=== PATIENT | male | born 1960 | race Caucasian/White ===

== ENCOUNTER 2018-06-27 05:39 | Inpatient (IN) ==
[2018-06-21 11:28] LABS: AGAP 12; ALB/GLOB RATIO 1.4; ALBUMIN 4.4 g/dL (3.5-5.0); ALKALINE PHOSPHATASE 70 U/L (32-122); BUN 9 mg/dL (8-22); CALCIUM 9.5 mg/dL (8.8-10.2); CHLORIDE 105 mmol/L (98-107); COSMO 282; CREATININE 0.8 mg/dL (0.7-1.2); ESTIMATED GFR > 60; GLUCOSE 96 mg/dL (70-104); GOT 22 U/L (10-34); GPT 25 U/L (10-44); LDH 176 U/L (135-225); POTASSIUM 4.2 mmol/L (3.5-5.1); SODIUM 142 mmol/L (136-145); TCO2 25 mmol/L (25-35); TOTAL BILIRUBIN 0.48 mg/dL (0.20-1.00); TOTAL PROTEIN 7.5 g/dL (6.3-8.3)
[2018-06-21 12:34] LABS: BASO# 0.03 X1000 (0.0-0.2); BASO% 0.5 % (0.0-0.8); EOS# 0.05 X1000 (0.0-0.7); EOS% 0.8 % (0.0-10.0); HEMATOCRIT 46.1 % (42.0-52.0); HEMOGLOBIN 15.5 g/dL (14.0-18.0); LYMPH# 1.02 X1000 (1.2-3.4); LYMPH% 16.7 % (20.5-51.1); MCHC 33.6 g/dL (33-37); MCV 86.2 FL (81-99); MONO# 0.58 X1000 (0.11-0.59); MONO% 9.5 % (1.7-9.3); MPV 8.8 FL (7.4-10.4); NEUT# 4.43 X1000 (1.4-6.5); NEUT% 72.5 % (42.2-75.2); PLT 306 X1000 (130-400); RBC 5.35 XMIL (4.7-6.1); WBC 6.11 X1000 (4.8-10.8)
[2018-06-27] MEDS ORDERED: KEFZOL 1 GM/D5W 2 GM/100 ML IVPB ONE ×3 (05:40→06:02)
[2018-06-27] MEDS ORDERED: VALIUM ONE ×2 (05:40)
[2018-06-27] MEDS ORDERED: LR 1,000 ML ONE ×3 (05:40→06:23)
[2018-06-27] MEDS ORDERED: PEPCID ONE ×3 (05:40→06:00)
[2018-06-27] MEDS ORDERED: LR 0 ML ONE (06:02)
[2018-06-27] MEDS ORDERED: MARCAINE 0.25% PF/EPI 1:200,000 ONE (06:23)
[2018-06-27] MEDS ORDERED: NORCURON ONE (06:35)
[2018-06-27] MEDS ORDERED: QUELICIN (DOSE) ONE (06:35)
[2018-06-27] MEDS ORDERED: XYLOCAINE-MPF 2% ONE (06:35)
[2018-06-27] MEDS ORDERED: DIPRIVAN 1% ONE (06:35)
[2018-06-27] MEDS ORDERED: SODIUM CHLORIDE 0.9% 10 ML ONE ×2 (06:35→07:02)
[2018-06-27] MEDS ORDERED: MARCAINE 0.25% ONE (07:01)
[2018-06-27] MEDS ORDERED: EXPAREL 1.3% ONE (07:02)
[2018-06-27] MEDS ORDERED: FENTANYL ONE (07:11)
[2018-06-27] MEDS ORDERED: ZOFRAN ONE (07:24)
[2018-06-27] MEDS ORDERED: DECADRON ONE (07:24)
[2018-06-27] MEDS ORDERED: TORADOL ONE (07:24)
[2018-06-27 07:37] LABS: URINE SOURCE CATH
[2018-06-27] MEDS ORDERED: ROBINUL ONE ×4 (07:41→08:59)
[2018-06-27] MEDS ORDERED: ATROPINE ONE (07:43)
[2018-06-27] MEDS ORDERED: EPHEDRINE ONE (07:47)
[2018-06-27 07:49] LABS: BILIRUBIN URINE NEGATIVE (NEGATIVE); BLOOD URINE NEGATIVE (NEGATIVE); COLOR YELLOW; GLUCOSE URINE NEGATIVE (NEGATIVE); KETONE URINE NEGATIVE (NEGATIVE); LEUKOCYTES URINE NEGATIVE (NEGATIVE); NITRITE URINE NEGATIVE (NEGATIVE); PH URINE 5.5; PROTEIN URINE NEGATIVE (NEGATIVE); SP GRAVITY URINE 1.006; TURBIDITY URINE CLEAR (CLEAR); UROBILINOGEN URINE NORMAL (NORMAL)
[2018-06-27 07:50] LABS: UR EPITHELIAL CELLS <10 /HPF (<10); URINE BACTERIA NEGATIVE /HPF; URINE RBC <10 /HPF (<10); URINE WBC <10 /HPF (<10)
[2018-06-27] MEDS ORDERED: FLAGYL 500 MG/NS 500 MG/100 ML IVPB IV ONE (08:00)
[2018-06-27] MEDS ORDERED: NEOSTIGMINE ONE (08:59)
[2018-06-27] MEDS: DILAUDID ONE ×2 (09:49→09:52)
[2018-06-27] MEDS ORDERED: ZOFRAN IV PRN (10:55)
[2018-06-27] MEDS: OFIRMEV 1000 MG/ISOTONIC SOLN 1,000 MG/100 ML BOTTLE IV SCH ×2 (11:21→17:49)
[2018-06-27] MEDS: ULTRAM PO PRN (14:05)
[2018-06-27] MEDS: LR 1,000 ML IV SCH ×2 (14:07→20:00)
--- NOTE | 2018-06-27 18:57 | HEMO/ONC CONSULTATION ---
DATE: 06/27/2018 CHIEF COMPLAINT: We are being consulted for further management of patient's abdominal mass. HISTORY OF PRESENT ILLNESS: The patient is a 58-year-old male that was found to have a mass in his abdomen after exercising approximately 3 months ago. The patient followed up with his primary care provider and had a CT of the abdomen and pelvis which revealed a 7.2 x 8.8 cm midline mass in the lower abdomen/upper pelvis which is well encapsulated with some mixed low- density areas within. The patient followed with Dr. Mckinney. Discussed mass at that time. The patient followed up as well here in the clinic on 06/20/2018. The patient did agree with the plan for the patient to go for laparotomy and resection of the mass with Dr. Mckinney. At that time, we felt that the mass looked like GI stromal tumor. The plan was to see him postoperatively, discuss pathology, and further management after his resection. The patient will stay and be admitted for his laparotomy. PAST MEDICAL HISTORY: None. PAST SURGICAL HISTORY: None. ALLERGIES: No known drug allergies. HOME MEDICATIONS: None. SOCIAL HISTORY: Noncontributory. FAMILY HISTORY: Noncontributory. REVIEW OF SYSTEMS: Negative other than that mentioned in the HPI. PHYSICAL EXAMINATION: Vital Signs: Temperature 97.3, heart rate 67, respiratory rate 14, blood pressure 126/80, saturating 97% on nasal cannula. General: Patient is awake, lying in bed. No acute distress noted. HEENT: Anicteric. Pupils PERRL. Mucous membranes appear to be moist. Neck: Supple. Trachea midline. Lymph Node Survey: No palpable lymphadenopathy. Cardiovascular: S1, S2. Regular rate and rhythm. Chest: Bilateral breath sounds clear to auscultation. Gastrointestinal: Nondistended. Tender at the surgical site. Dressing taped on in place. Neurologic: Alert and oriented x3. No focal deficits noted. ASSESSMENT AND PLAN: 1. Intra-abdominal encapsulated mass: The patient had laparotomy with resection today with Dr. Mckinney. At this time, awaiting on pathology results. We will follow up on pathology results. Patient will follow up in clinic 4 weeks post op. 2. Supportive care: When the patient is able to drink, the patient wants to start protein shakes 4 times a day. The patient will also continue exercises as instructed in clinic. 3. Deep venous thrombosis prophylaxis: Patient will continue with Lovenox as ordered. Plan of care discussed with Dr. Rios. Dictated by IRENA Fisher for Watson Rios MD Patient seen and examined. As above. Status post surgery for abdominal mass. He tolerated the procedure well. Await pathology results. I will follow with you. Thank you. Watson Rios M.D. cc: MD Haider Yost MD [facility]
--- NOTE | 2018-06-27 20:40 | OPERATIVE NOTE ---
PROCEDURE DATE: 06/27/2018 PREOPERATIVE DIAGNOSIS: Intraabdominal mass. POSTOPERATIVE DIAGNOSIS: Mesenteric mass. PROCEDURE PERFORMED: 1. Diagnostic laparoscopy. 2. Resection of mesenteric mass. ESTIMATED BLOOD LOSS: 30 mL. SPECIMENS: Mesenteric mass. ANESTHESIA: General with a TAP block. INDICATIONS: A 58-year-old gentleman who has had a large intraabdominal mass noted on CT scan. Etiology is unclear. FINDINGS: There was a well-circumscribed cystic mass within the mesentery of the small bowel. It abutted along the course of the SMA as well as the post jejunal branch to the small bowel, but did not involve these vascular structures. There did appear to be some entering lymphatics into this cystic lesion. There was no evidence of metastatic disease of the liver, peritoneum. There was no small bowel lesions and there were no colon lesions noted. OPERATIVE NOTE: Risks, benefits, alternatives discussed with patient who consented to the procedure, seen preoperatively. Surgical site was confirmed and marked. Taken to the operating room, placed in supine position and general anesthesia induced without complication. All bony prominences were padded. Hair was removed with clippers. Lizama catheter was placed and his abdomen was prepped with chlorhexidine solution after a TAP block was performed by Anesthesia. For details, please see their records. After prepping the abdomen and draping it, we made a lower midline infraumbilical incision and carried it down the fascia, incised the fascia, placed a Michaela trocar and insufflated the abdomen. We were able to easily identify the mass. We placed another 5 mm trocar in the right lower quadrant and noted the size of the mass and its location within the small bowel mesentery. Given this finding, we felt this was not resectable laparoscopically and extended our incision cephalad and inferiorly, getting wide exposure. We placed an Titus wound protector and eviscerated the small bowel that contained this mass. We packed the remaining small bowel away. We scored the mesentery in the peritoneum overlying this mass and entered the avascular plane, dissecting this out. We were careful to protect the mesenteric arcade which we were able to do successfully. There were some feeding lymphatics that we clipped along the course of the mass. We could visualize some Chyle leakage at locations that we attempted to ligate as we encountered them. We were able to resect the mass methodically over the course of the case and passed it off. It was left with a mesenteric defect, but the small bowel remained adequately perfused and there was no venous injuries causing venous congestion. We closed the mesenteric defect with a running 3-0 Vicryl suture, ligating some of these areas where the Chyle was noted to protect the mesenteric arcade. At the conclusion, there was good closure of mesenteric defect. This extended all the way down to the root of the SMA. We placed it back into its normal anatomic position. Placed omentum over this. Irrigated the abdomen until clear. We closed the fascia with #1 running looped PDS suture. Our counts were correct. We closed the skin with 4-0 Monocryl in subcuticular fashion, Dermabond applied. He was awoken and transferred to recovery, I spoke with the family. cc: Haider Mckinney MD MTDD
[2018-06-27] MEDS ORDERED: BENADRYL PO ONE ×2 (21:00)
[2018-06-27] MEDS: PERIDEX MT SCH (21:56)
[2018-06-28] MEDS: OFIRMEV 1000 MG/ISOTONIC SOLN 1,000 MG/100 ML BOTTLE IV SCH ×4 (01:14→21:11)
[2018-06-28] MEDS: ULTRAM PO PRN ×2 (03:57→11:11)
[2018-06-28] MEDS: LR 1,000 ML IV SCH (04:50)
[2018-06-28 06:29] LABS: HEMATOCRIT 39.4 % (42.0-52.0); HEMOGLOBIN 13.2 g/dL (14.0-18.0); MCH 29.3 PG (27-31); MCHC 33.5 g/dL (33-37); MCV 87.4 FL (81-99); MPV 8.6 FL (7.4-10.4); RBC 4.51 XMIL (4.7-6.1); RDW 13.9 % (11.5-14.5); WBC 7.64 X1000 (4.8-10.8)
[2018-06-28 06:46] LABS: AGAP 10; BUN 9 mg/dL (8-22); CALCIUM 8.7 mg/dL (8.8-10.2); CHLORIDE 105 mmol/L (98-107); COSMO 277; CREATININE 0.7 mg/dL (0.7-1.2); ESTIMATED GFR > 60; GLUCOSE 113 mg/dL (70-104); POTASSIUM 3.6 mmol/L (3.5-5.1); SODIUM 139 mmol/L (136-145); TCO2 24 mmol/L (25-35)
[2018-06-28] MEDS: PERIDEX MT SCH ×2 (10:59→21:11)
[2018-06-28] MEDS: MAG-OX PO SCH (10:59)
[2018-06-28] MEDS: LOVENOX SUBQ SCH (10:59)
[2018-06-28] MEDS: PRILOSEC PO SCH (14:08)
--- NOTE | 2018-06-28 14:48 | GENERAL SURGERY PROGRESS NOTE ---
DATE: 06/28/2018 SUBJECTIVE: He is doing very well. Affirmative only for pain. He is ambulating. He has voided after his Lizama is out. Not passing gas. The nausea he had last night has resolved. No fevers. No tachycardia. LABORATORY: I reviewed his labs. ASSESSMENT AND PLAN: He is on prophylactic Lovenox, SCDs. Will Hep-Lock his fluids. Encourage him to be out of bed and continue advance him today. Hopefully home in the next 24 hours or so. cc: Haider Mckinney MD
[2018-06-29] MEDS: OFIRMEV 1000 MG/ISOTONIC SOLN 1,000 MG/100 ML BOTTLE IV SCH ×3 (04:14→10:58)
[2018-06-29] MEDS: PRILOSEC PO SCH (06:00)
[2018-06-29] MEDS: LOVENOX SUBQ SCH ×2 (07:41→10:58)
[2018-06-29] MEDS: PERIDEX MT SCH ×2 (07:42→10:58)
[2018-06-29] MEDS: MAG-OX PO SCH ×2 (07:42→10:58)
[2018-06-29 11:14] VITALS: BP 136/87
== END 2018-06-29 12:37 | disposition home or self-care (01) | DRG 989 ==
LOC: 4N 05:39 → OR 05:39 → OBSVTOIN 09:27
PROVIDERS: ADMIT Surgery; ATTEND Surgery
CPT/HCPCS: 80048; 80053; 81001; 81050; 82378; 83497; 83615; 85025; 85027; 86301; 88304; 94761; 94799; A9270; C9290; J0131; J0330; J0461; J0690; J1100; J1170; J1650; J1885; J2405; J3010; J7120; S0020; S0030

== ENCOUNTER 2018-07-07 10:24 | Inpatient (IN) ==
[2018-07-07 12:47] LABS: BASO# 0.01 X1000 (0.0-0.2); BASO% 0.1 % (0.0-0.8); EOS# 0.04 X1000 (0.0-0.7); EOS% 0.5 % (0.0-10.0); HEMATOCRIT 49.3 % (42.0-52.0); HEMOGLOBIN 16.8 g/dL (14.0-18.0); LYMPH# 1.03 X1000 (1.2-3.4); LYMPH% 12.4 % (20.5-51.1); MCH 28.9 PG (27-31); MCHC 34.1 g/dL (33-37); MCV 84.9 FL (81-99); MONO# 0.76 X1000 (0.11-0.59); MONO% 9.1 % (1.7-9.3); MPV 8.5 FL (7.4-10.4); NEUT% 77.9 % (42.2-75.2); PLT 416 X1000 (130-400); RBC 5.81 XMIL (4.7-6.1); WBC 8.34 X1000 (4.8-10.8)
[2018-07-07 13:08] LABS: AGAP 15; ALB/GLOB RATIO 1.2; ALBUMIN 4.6 g/dL (3.5-5.0); ALKALINE PHOSPHATASE 72 U/L (32-122); AMYLASE 44 U/L (20-200); BUN 23 mg/dL (8-22); CALCIUM 10.4 mg/dL (8.8-10.2); CHLORIDE 100 mmol/L (98-107); COSMO 288; CREATININE 1.2 mg/dL (0.7-1.2); ESTIMATED GFR > 60; GLUCOSE 120 mg/dL (70-104); GOT 22 U/L (10-34); GPT 36 U/L (10-44); LIPASE 43 U/L (13-60); POTASSIUM 4.2 mmol/L (3.5-5.1); SODIUM 142 mmol/L (136-145); TCO2 27 mmol/L (25-35); TOTAL BILIRUBIN 0.62 mg/dL (0.20-1.00); TOTAL PROTEIN 8.3 g/dL (6.3-8.3)
[2018-07-07 13:28] LABS: URINE SOURCE CLEAN CATCH
[2018-07-07 13:31] LABS: BILIRUBIN URINE NEGATIVE (NEGATIVE); BLOOD URINE NEGATIVE (NEGATIVE); COLOR YELLOW; GLUCOSE URINE NEGATIVE (NEGATIVE); KETONE URINE NEGATIVE (NEGATIVE); LEUKOCYTES URINE NEGATIVE (NEGATIVE); NITRITE URINE NEGATIVE (NEGATIVE); PROTEIN URINE 30 mg/dL (NEGATIVE); SP GRAVITY URINE 1.028; TURBIDITY URINE CLEAR (CLEAR); UROBILINOGEN URINE NORMAL (NORMAL)
[2018-07-07 13:41] LABS: UR EPITHELIAL CELLS <10 /HPF (<10); URINE BACTERIA NEGATIVE /HPF; URINE RBC <10 /HPF (<10); URINE WBC <10 /HPF (<10)
[2018-07-07 13:43] LABS: URINE CASTS GRANULAR PRESENT
[2018-07-07] MEDS ORDERED: NS 1,000 ML IV ONE (14:00)
[2018-07-07] MEDS ORDERED: ZOFRAN IV ONE (14:08)
--- NOTE | 2018-07-07 14:11 | PROVIDER DOCUMENTATION ---
HPI-Abdominal Pain/GI Problem - General Chief Complaint: Post Op Complaint Stated Complaint: VOMITING Time Seen by Provider: 07/07/18 14:00 Source: patient Allergies/Adverse Reactions: Patient Allergies Allergy/AdvReac Type Severity Reaction Status Date / Time No Known Allergies Allergy Verified 07/07/18 14:23 Home Medications: Home Medication List Medication Instructions Recorded Confirmed Last Taken Type NK [No Home Medications] 06/21/18 07/07/18 Unknown History - History of Present Illness-ABD Nature of Presenting Problems: 58 YOM PRESENTS WITH C/O N/V. HE HAD MESENTERY CYST REMOVAL 2 WKS AGO AND REPORT S HE HAS DONE WELL SINCE SURGERY UNTIL LAST NIGHT WHEN HE BEGAN TO HAVE BILIOUS VOMITING. HE DENIES FEVER, CHILLS, ABDOMINAL PAIN, DRAINAGE FROM SURGICAL SITE OR OTHER ASSOCIATED SYMPTOMS. HE REPORTS THEY CALLED DR GAMEZ AND WERE ADVISED TO COME TO THE ER FOR IVF AND CT OF THE ABDOMEN Quality of Pain: reports: none Severity in ED: reports: mild Onset/Duration: reports: 24 hours ago Timing: reports: improving, intermittent Activities at Onset: reports: none Exposure to sick contacts?: No Modifying Factors: improves with: nothing Associated Symptoms: reports: nausea, vomiting Last BM: this morning Dark Stools Present?: reports: none noticed Rectal Bleeding: reports: none # of Vomiting Episodes: 3 Emesis Description: reports: other (BILIOUS) Bruising or Bleeding Gums?: No Similar Symptoms Previously?: No Recently seen or treated by another doctor?: No Review of Systems - Adult - REVIEW OF SYSTEMS - ADULT Constitutional: reports: no symptoms reported. denies: see HPI, chills, fever, fatique, night sweats, weight gain, weight loss, other Eyes: reports: no symptoms reported. denies: see HPI, discharge, dry eyes, decreased vision, blurred vision, double vision, eye pain, redness, other Ears, Nose, Mouth & Throat: reports: no symptoms reported. denies: see HPI, ear discharge, ear pain, hearing loss, tinnitus, epistaxis, sinus problem, nose pain, loose teeth, mouth/dental pain, mouth swelling, hoarseness, throat pain, throat swelling, other Cardiovascular: reports: no symptoms reported. denies: see HPI, chest pain, edema, heart murmur, irregular heart rate, orthopnea, palpitations, poor circulation, PND, syncope, other Respiratory: reports: no symptoms reported. denies: see HPI, chronic cough, cough, dyspnea on exertion, excessive sputum production, hemoptysis, pleurisy, shortness of breath, wheezing, other Gastrointestinal: reports: nausea, vomiting. denies: no symptoms reported, see HPI, abdominal pain, hematemesis, constipation, diarrhea, difficulty swallowing, frequent heartburn, poor appetite, rectal bleeding, other Genitourinary: reports: no symptoms reported. denies: see HPI, dysuria, discharge, frequency, flank pain, frequent UTI's, hematuria, hesitency, incontinence, urinary retention, urgency, other Musculoskeletal: reports: no symptoms reported. denies: see HPI, bone pain, back pain, frequent leg cramps, joint pain, joint swelling, muscle aches, muscle weakness, neck pain, other Integumentary: reports: no symptoms reported. denies: see HPI, hives, hair loss, itching, mole changes, nail changes, rash, skin sores/ulcer, skin thickening, other Neurological: reports: no symptoms reported. denies: see HPI, ataxia, dizziness/vertigo, headache/migraines, loss of balance, numbness, paresthesia, seizure, slurred speech, syncope, tremors, other Psychiatric: reports: no symptoms reported. denies: see HPI, anxiety, anti- depressant use, alcohol/drug dependence, depression, emotional problems, insomnia, panic attacks, suicidal thoughts, other Endocrine: reports: no symptoms reported. denies: see HPI, change in skin pigment, excessive sweating, goiter, cold intolerance, heat intolerance, increased hunger, increased thirst, polyuria, other Hematologic/Lymphatic: reports: no symptoms reported. denies: see HPI, blood clots, easy bruising, low blood count, lymphedema, prolonged bleeding, swollen lymph nodes, transfusions, other Allergic/Immunologic: reports: no symptoms reported. denies: see HPI, allergic reactions, allergic rhinitis, asthma, eczema, food allergy, frequent infections, hay fever, hives, positive PPD, urticaria, other Past History - Adult - PAST MEDICAL HISTORY-ADULT Review of Records: reports: Nursing Assessment Review, Social history reviewed & non-contributory. Physical Exam-General - PHYSICAL EXAM-ADULT Initial Vital Signs Reviewed: Yes - CONSTITUTIONAL General Appearance: appears well, alert, no apparent distress - EYES Eyes: PERRL/EOMI - HEAD, EARS, NOSE, MOUTH & THROAT HENMT: normocephalic/atraumatic, moist mucous membranes, normal ENT inspection - NECK Neck: non-tender, full range of motion, supple - RESPIRATORY Respiratory: chest non-tender, lungs clear, normal breath sounds, no pleuratic chest pain, no respiratory distress, no accessory muscle use - CARDIOVASCULAR Cardiovascular: normal peripheral pulses, regular rate, rhythm, no edema, no gallop, no JVD, no murmur - GASTROINTESTINAL (ABDOMEN) Abdominal Exam: normal bowel sounds, non tender, soft, other (MIDLINE INCISION PRESETN WITH GLUE, 2 1CM PORT INCISION ON R & L LQ) - LYMPHATIC Lymphatic: no adenopathy (NON TENDER IN ALL QUADRANTS) - MUSCULOSKELETAL Back Exam: normal inspection, no CVA tenderness, no vertebral tenderness Extremity: normal range of motion, non-tender, normal gait, normal inspection - SKIN Integumentary: normal color, normal turgor, warm/dry, other (SURGICAL INCISIONS) - NEUROLOGIC Neurologic: grossly normal - PSYCHIATRIC Psych/Mental Status: normal mood/affect, oriented x 3 Progress - PLAN OF CARE/RESULTS Progress/Plan/Lab Results: Vital Signs - 8 hr 07/07/18 11:15 07/07/18 13:16 Temperature 97.8 F 98.3 F Pulse Rate 107 H 110 H Respiratory Rate 18 18 Blood Pressure 112/79 100/75 O2 Sat by Pulse Oximetry 96 99 Laboratory Results - last 24 hr 07/07/18 07/07/18 07/07/18 12:40 12:40 12:57 WBC 8.34 RBC 5.81 Hgb 16.8 Hct 49.3 MCV 84.9 MCH 28.9 MCHC 34.1 RDW Std Deviation 14.0 Plt Count 416 H MPV 8.5 Immature Gran % (Auto) 0.0 Neut % (Auto) 77.9 H Lymph % (Auto) 12.4 L [place] % (Auto) 9.1 Eos % (Auto) 0.5 Baso % (Auto) 0.1 Immature Gran # (Auto) 0.00 Neut # (Auto) 6.50 Lymph # (Auto) 1.03 L [place] # (Auto) 0.76 H Eos # (Auto) 0.04 Baso # (Auto) 0.01 Sodium 142 Potassium 4.2 Chloride 100 Carbon Dioxide 27 Anion Gap 15 BUN 23 H Creatinine 1.2 Estimated GFR/1.73 m2 > 60 BUN/Creatinine Ratio 19 Glucose 120 H Calculated Osmolality 288 Calcium 10.4 H Total Bilirubin 0.62 AST 22 ALT 36 Alkaline Phosphatase 72 Total Protein 8.3 Albumin 4.6 Globulin 3.7 Albumin/Globulin Ratio 1.2 Amylase 44 Lipase 43 Urine Source CLEAN CATCH Urine Color YELLOW Urine Turbidity CLEAR Urine pH 6.0 Ur Specific [place] 1.028 Urine Protein 30 A Ur Glucose (Stick) NEGATIVE Ur Ketones (Stick) NEGATIVE Urine Blood NEGATIVE Urine Nitrite NEGATIVE Urine Bilirubin NEGATIVE Urobilinogen Dipstick NORMAL Urine Leukocytes NEGATIVE Urine WBC (Auto) <10 Urine RBC (Auto) <10 U Epithel Cells (Auto) <10 Urine Bacteria (Auto) NEGATIVE Urine Crystals Not Reportable Small Round Cells Not Reportable Urine Casts GRANULAR PRESENT Urine Yeast-like Cells Not Reportable Orders Category Date Time Status Saline Loc DIRECTED Care 07/07/18 12:38 Active NPO Diet 07/07/18 12:[address] ABD/PELVIS W/IV CONT ONLY [CT] Stat Exams 07/07/18 14:00 Ordered AMYLASE [CHEM] Stat Lab 07/07/18 12:40 Completed CBC WITH ELECTRONIC DIFF [HEME] Stat Lab 07/07/18 12:40 Completed COMPREHENSIVE METABOLIC PANEL [CHEM] Stat Lab 07/07/18 12:40 Completed LIPASE [CHEM] Stat Lab 07/07/18 12:40 Completed URINALYSIS W/POSS RFLX CULT [URINALYSIS] Stat Lab 07/07/18 12:57 Completed URINE MANUAL MICROSCOPIC [URINALYSIS] Stat Lab 07/07/18 12:57 Completed 0.9% Sodium Chloride Inj [Ns] 1,000 ml Med 07/07/18 14:00 Active IV 999 mls/hr Result Diagrams: 07/07/18 12:40 07/07/18 12:40 - CT/MRI 1 CT Study: Abdomen, Pelvis Impression: Abnormal, See EMR Report (COMMENT: There are no previous studies available for comparison. There is some questionable atelectasis in the lower lobes bilaterally. The gastric fundus and body are slightly distended with fluid. There is also a fairly large amount of fluid in the proximal small bowel loops. The aorta is not distended. The mesenteric and renal arteries are patent. The gallbladder is not distended. The liver is unremarkable in appearance. The spleen is not enlarged. The adrenal glands are nonenlarged. The pancreas is unremarkable. There is no evidence of significant adenopathy. The kidneys are without evidence of hydronephrosis or mass. The colon is not distended and the appendix is normal in appearance. The distal small bowel is normal in caliber. The transition point appears to be in the right midabdomen around image 76 which is anterior to the group of surgical clips. Pelvis: There is diverticulosis in the distal descending colon. There is no evidence of active diverticulitis. There is a small amount of free fluid in the rectovesical pouch. The urinary bladder is not distended. There are degenerative changes in the symphysis pubis and right hip. There are degenerative disc and facet changes in the lumbar spine. IMPRESSION: Small bowel obstruction.) - CONSULTS/PCP/HOSPITALIST Notification #1 *Consult/PCP/Hospitalist*: HOSPITALIST Time Discussed: 15:45 Consult Disposition: Admit Departure - Departure Date of Disposition Decision: 07/07/18 Time of Disposition Decision: 15:45 DIAGNOSIS: SBO (small bowel obstruction) Disposition: ADMITTED INPATIENT 09 Certified Medical Emergency: Emergent Condition: Stable Additional Freetext Instructions: ED Follow Up Instructions: You have been treated by a care provider in the Emergency Department. These instructions are being provided to you so you can have an understanding of how to care for yourself upon discharge. Upon discharge from the Emergency Depar tment, you are responsible for making arrangements for follow-up care by a physician of your choice. Take all prescribed medications as directed. Return to the Emergency Department immediately for any new or worsening symptoms. You may call the Physician Referral phone number at [phone] to obtain a list of Physicians who are taking new patients. Referrals and Follow-Ups: Elbert Fonseca MD [Primary Care Provider] - - Critical Care Note This patient required my direct & personal management of CC.: No Attestation - Physician/ RICHARD Attestation Patient care was provided by Advanced Practice Provider:: Yes Advanced Practice Provider:: Halley Huertas Advanced Practice Provider documentation review:: The Mid-level provider documentation, treatment plan and medical decision making was reviewed by the ph ysician who agrees with all treatment and medical decision making by the MLP. The physician spent face to face time with patient:: No Advanced Practice Provider documentation review:: Supervising physician onsite and consulted in the evaluation and care of this patient. The physician did not have a face to face encounter with the patient.
--- NOTE | 2018-07-07 15:17 | Diag Imaging Result Doc PS360 ---
EXAM: CT ABD/PELVIS W/IV CONT ONLY 07/07/2018 HISTORY: recent mesentary surgery, N/V TECHNIQUE: This exam was performed using automated exposure control, adjustment of mA or kV according to patient size, and/or use of iterative reconstruction technique. COMMENT: There are no previous studies available for comparison. There is some questionable atelectasis in the lower lobes bilaterally. The gastric fundus and body are slightly distended with fluid. There is also a fairly large amount of fluid in the proximal small bowel loops. The aorta is not distended. The mesenteric and renal arteries are patent. The gallbladder is not distended. The liver is unremarkable in appearance. The spleen is not enlarged. The adrenal glands are nonenlarged. The pancreas is unremarkable. There is no evidence of significant adenopathy. The kidneys are without evidence of hydronephrosis or mass. The colon is not distended and the appendix is normal in appearance. The distal small bowel is normal in caliber. The transition point appears to be in the right midabdomen around image 76 which is anterior to the group of surgical clips. Pelvis: There is diverticulosis in the distal descending colon. There is no evidence of active diverticulitis. There is a small amount of free fluid in the rectovesical pouch. The urinary bladder is not distended. There are degenerative changes in the symphysis pubis and right hip. There are degenerative disc and facet changes in the lumbar spine. IMPRESSION: Small bowel obstruction. Electronically signed by Hung Cartagena 07/07/2018 3:15 PM
[2018-07-07] MEDS ORDERED: LOVENOX SUBQ SCH (16:32)
[2018-07-07] MEDS ORDERED: MORPHINE IV PRN (16:32)
[2018-07-07] MEDS: NS 1,000 ML IV SCH (18:19)
[2018-07-07] MEDS: ZOFRAN IV PRN (18:47)
--- NOTE | 2018-07-07 21:49 | HISTORY AND PHYSICAL ---
PRIMARY SURGEON: Dr. Krunal Mckinney. HISTORY OF PRESENT ILLNESS: A 58-year-old male with unremarkable past medical history who had, on 06/27/2018, because of intra-abdominal mass, a diagnostic laparoscopy with resection of that mesenteric mass. Since then, he was feeling fine until yesterday afternoon when he started having vomiting. He reports that this moiety was greenish, no blood on it, and approximately he had 3 to 4 since yesterday, so he called Dr. Mckinney's office this morning and he was recommended to come to the emergency department for further evaluation and treatment. Here, the abdominal/pelvis CT showed a small bowel obstruction. He is going to be admitted for further evaluation and treatment. PAST MEDICAL HISTORY: Unremarkable. PAST SURGICAL HISTORY: Removal of mesenteric mass a couple weeks ago. ALLERGIES: No known drug allergies. SOCIAL HISTORY: He drinks alcohol occasionally. Denies any smoking or using illicit drugs. He lives with . REVIEW OF SYSTEMS: 11 systems were reviewed and all symptoms are related to H and P. PHYSICAL EXAMINATION: VITAL SIGNS: Temperature 98.3 degrees, heart rate 86, respiratory rate 18, blood pressure 123/93, O2 saturation 98% on room air. GENERAL: This is a 58-year-old male, lying in bed, in no acute distress. HEENT: Head is normocephalic and atraumatic. Mucous membranes dry. NECK: No JVD noted. No carotid bruits. No lymphadenopathy. No thyromegaly. CARDIOVASCULAR: S1, S2 heard. No murmurs, gallops, or rubs. Regular rate and rhythm. RESPIRATORY: Clear bilaterally to auscultation. No work of breathing or using accessory muscles. ABDOMEN: Soft, nondistended, mildly tender to palpation all over, but no signs of peritoneal irritation. EXTREMITIES: No clubbing, cyanosis, or edema. Peripheral pulses present in both legs. NEUROLOGICAL: The patient is alert and oriented x3. Moves all 4 extremities. LABORATORY DATA: CBC unremarkable. BMP shows BUN 23 with glucose 120, calcium 10.4. Urinalysis is normal. ASSESSMENT AND PLAN: Small bowel obstruction. For that reason, patient is going to be admitted to the hospital. We are going to consult Surgery. We are going to repeat abdominal x-ray tomorrow. We are going to provide intravenous fluids and pain medications as needed. We will monitor this patient closely. At this point, considering there is not too much abdominal distention, we are not going to place nasogastric tube unless it is recommended by General Surgery. We will monitor this patient closely. cc: Zack Parsons MD
--- NOTE | 2018-07-08 00:51 | GENERAL SURGERY CONSULTATION ---
DATE: 07/07/2018 REASON FOR CONSULTATION: Small-bowel obstruction. HISTORY OF PRESENT ILLNESS: This is a 58-year-old male who is postoperative day 10 from excision of a cystic mass of the mesentery by Dr. Mckinney. He was doing well at home; in fact, he saw Dr. Mckinney 2 days ago and was given a good report. He had been up doing light activity without any pain. No nausea or vomiting. He was eating and having bowel movements. His last good bowel movement was yesterday. However, last night he started having nausea without abdominal pain. He had 3 episodes of vomiting that was noted to be bilious, and he remains somewhat nauseated today in the ER. Again, he denies abdominal pain, fever, or chills. He did pass a little gas today. PAST MEDICAL HISTORY: None, except for what is above in HPI. PAST SURGICAL HISTORY: Exploratory laparotomy with excision of cystic mesenteric mass called a seroma on pathology on 06/27/2018. HOME MEDICATIONS: None. FAMILY HISTORY: Reviewed and not pertinent. ALLERGIES: No known drug allergies. SOCIAL HISTORY: He smokes about a half a pack per day. He drinks alcohol occasionally. No illicit drug use. REVIEW OF SYSTEMS: Ten systems reviewed and negative, except as noted above. PHYSICAL EXAMINATION: Vital Signs: Temperature 98 degrees, pulse 91, respirations 18, blood pressure 147/89 O2 saturation 97%. General: Well-developed well-nourished male, in no distress, who looks stated age. HEENT: Normocephalic, atraumatic. Extraocular muscles intact. Pupils equal, round, reactive to light. Sclerae anicteric. Neck: Supple. No thyromegaly. No JVD. Cardiovascular: Regular rate and rhythm. Respiratory: Bilateral breath sounds. No work of breathing. Gastrointestinal: Soft, nondistended, nontender. No organomegaly or mass. His midline incision is healing well. Extremities: No clubbing, cyanosis, or edema. Skin: Warm and dry. No rash. Musculoskeletal: Moves all extremities equally and well. LABORATORY: CBC and complete metabolic profile reviewed and unremarkable. Urinalysis reviewed and unremarkable. IMAGING: CT of the abdomen and pelvis was reviewed by me. He does have a dilated stomach and proximal small bowel with decompressed small bowel. This would be consistent with a small-bowel obstruction. ASSESSMENT AND PLAN: A 58-year-old male with multiple episodes of vomiting and imaging suggesting small-bowel obstruction. He is only 10 days out from recent laparotomy. This may be related to some mild ileus versus gastroenteritis versus new adhesions causing a new obstruction. In any case, he does not have an acute abdomen. He looks stable. We will continue observation only, at this point, and keep him hydrated. Recheck his physical status in the morning indication. cc: Pipe Cunningham MD
[2018-07-08] MEDS: NS 1,000 ML IV SCH ×2 (01:05→09:21)
[2018-07-08] MEDS: ZOFRAN IV PRN (01:06)
[2018-07-08 07:22] LABS: BASO# 0.02 X1000 (0.0-0.2); BASO% 0.3 % (0.0-0.8); EOS# 0.05 X1000 (0.0-0.7); EOS% 0.7 % (0.0-10.0); HEMATOCRIT 44.9 % (42.0-52.0); HEMOGLOBIN 14.9 g/dL (14.0-18.0); LYMPH# 0.54 X1000 (1.2-3.4); LYMPH% 7.2 % (20.5-51.1); MCH 28.8 PG (27-31); MCHC 33.2 g/dL (33-37); MCV 86.7 FL (81-99); MONO# 0.54 X1000 (0.11-0.59); MONO% 7.2 % (1.7-9.3); MPV 8.6 FL (7.4-10.4); NEUT# 6.31 X1000 (1.4-6.5); NEUT% 84.6 % (42.2-75.2); PLT 332 X1000 (130-400); RBC 5.18 XMIL (4.7-6.1); WBC 7.46 X1000 (4.8-10.8)
[2018-07-08 07:51] LABS: AGAP 13; BUN 21 mg/dL (8-22); CALCIUM 9.4 mg/dL (8.8-10.2); CHLORIDE 102 mmol/L (98-107); COSMO 289; CREATININE 0.9 mg/dL (0.7-1.2); ESTIMATED GFR > 60; GLUCOSE 114 mg/dL (70-104); MAGNESIUM 2.1 mg/dL (1.5-2.7); POTASSIUM 3.8 mmol/L (3.5-5.1); SODIUM 143 mmol/L (136-145); TCO2 28 mmol/L (25-35)
--- NOTE | 2018-07-08 08:28 | Diag Imaging Result Doc PS360 ---
EXAM: ABDOMEN FLAT/UPRIGHT HISTORY: sbo TECHNIQUE: Flat and upright, two views COMPARISON: None. FINDINGS: There are several overly distended small bowel loops with air-fluid levels. These measure up to 6 cm. Minimal stool in the proximal colon. No organomegaly. Several surgical clips in the mid right abdomen. No abnormal calcifications. IMPRESSION: Small bowel obstruction. Electronically signed by Gerson Murphy 07/08/2018 8:26 AM
[2018-07-08] MEDS ORDERED: OFIRMEV 1000 MG/ISOTONIC SOLN 1,000 MG/100 ML BOTTLE IV PRN (10:11)
[2018-07-08] MEDS ORDERED: SODIUM CHLORIDE 0.9% INJ SCH (10:15)
[2018-07-08] MEDS ORDERED: PEPCID IV SCH (10:15)
[2018-07-08] MEDS: TORADOL IV SCH ×2 (10:49→15:59)
[2018-07-08 16:28] VITALS: BP 134/88
--- NOTE | 2018-07-08 17:55 | PROGRESS NOTE ---
DATE: 07/08/2018 SUBJECTIVE: The patient reports passing some gas, but he has been feeling nauseated and he vomited twice yesterday. Reports mild abdominal pain, but he was not requesting morphine because he thinks that morphine can make his condition worse. He requests non opiate medications for his pain. OBJECTIVE: Vital Signs: Temperature 98.0, heart rate 77, respiratory rate 20, blood pressure 127/78, O2 saturation 96% on room air. General Examination: This is a 58-year-old, male, lying in bed, in no acute distress. Cardiovascular: S1, S2 heard. No murmurs, gallops, or rubs. Regular rate and rhythm. Respiratory: Clear bilaterally to auscultation. No work of breathing or using accessory muscles. Abdomen: Soft, a little bit distended. Mildly tender to palpation diffusely. No signs of peritoneal irritation. Extremities: No clubbing, cyanosis, or edema. Peripheral pulses present in both legs. Neurological: Patient alert and oriented x3. Moves 4 extremities. LABORATORY DATA: Reviewed. ASSESSMENT AND PLAN: Small bowel obstruction. Clinically, this patient is stable with mild nausea and apparently passing some gases. The x-ray from today showed small bowel obstruction. At this point, we will continue with the same management. In this case, IV fluids, plus pain medication. We are going to add Ofirmev and Toradol. I will see how he does. cc: Zack Parsons MD
--- NOTE | 2018-07-09 00:35 | GENERAL SURGERY PROGRESS NOTE ---
DATE: 07/08/2018 SUBJECTIVE: The patient had 2 episodes of vomiting overnight at 4 a.m. and 10 a.m. However over the last 2 hours, he has had 4 large bowel movements. He is no longer having any pain or nausea. OBJECTIVE: He is afebrile. Vital signs are stable.General: He is awake, alert, oriented x4. No acute distress. GI: Soft, nontender, nondistended. Good bowel sounds. IMAGING: His flat and upright film this morning still show dilated small bowel consistent with small bowel obstruction. ASSESSMENT AND PLAN: A 58-year-old male with small bowel obstruction that appears to be resolving. We will start him on a clear liquid diet. If he tolerates this today I will let him be discharged this evening. cc: Pipe Cunningham MD
--- NOTE | 2018-07-11 14:45 | DISCHARGE SUMMARY ---
ADMISSION DATE: 07/07/2018 DISCHARGE DATE: 07/08/2018 DISCHARGE DIAGNOSIS: Small bowel obstruction, resolved. CONSULTATIONS: Dr. Cunningham from General Surgery. HOSPITAL COURSE: This patient was basically admitted to the hospital for abdominal pain that started one day ago with nausea and vomiting. In the ER evaluation he was found out to have a small bowel obstruction. Admitted to the hospital for observation. Next day, even though the x- ray showed still patterns of a small bowel obstruction, he had to pick bowel movements. The patient was re-evaluated by Dr. Cunningham. That afternoon he considered that he can be discharged. Upon my examination, he was feeling fine with vitals okay so he was discharged in stable condition. He was supposed to be seen by his primary doctor in a week from the time of discharge. We are not providing any medications. Actually, he was discharged at the end of the day. So, at this point, the plan for him is to follow up with his primary surgeon. cc: Zack Parsons MD
== END 2018-07-08 17:49 | disposition home or self-care (01) | DRG 390 ==
LOC: ED 10:24 → 4N 10:25
PROVIDERS: ATTEND Internal Medicine
CPT/HCPCS: 74019; 74020; 74177; 80048; 80053; 81001; 82150; 83690; 83735; 85025; 87040; 96374; 99285; J1885; J2405; J7030; Q9967; S0028

== ENCOUNTER 2018-07-11 11:07 | Inpatient (IN) ==
--- NOTE | 2018-07-11 13:10 | Diag Imaging Result Doc PS360 ---
SMALL BOWEL SERIES ONLY - 07/11/2018 INDICATION: intestinal obstruction TECHNIQUE: Four images were obtained COMPARISON: X-rays from 07/08/2018 FINDINGS: Once again, there is massive gaseous dilation of several loops of small bowel centrally. This has clearly progressed since the prior exam. The patient could only complete the exam for 40 minutes. There is overall very little filling of the small bowel with contrast. There is essentially no colon or rectal gas. IMPRESSION: High-grade small bowel obstruction that was present previously on 07/08/2018. Electronically signed by Darin Pugh 07/11/2018 1:08 PM
[2018-07-11] MEDS ORDERED: SODIUM CHLORIDE 0.9% INJ PRN (13:20)
[2018-07-11] MEDS ORDERED: ZOFRAN IV PRN (13:20)
[2018-07-11] MEDS ORDERED: SODIUM CHLORIDE 0.9% INJ SCH (13:20)
[2018-07-11] MEDS ORDERED: PROTONIX IV SCH (13:20)
[2018-07-11] MEDS: LR 1,000 ML IV SCH ×2 (14:03→21:44)
[2018-07-11] MEDS: PHENERGAN IV PRN ×2 (14:09→20:47)
[2018-07-11 15:01] LABS: HEMATOCRIT 45.4 % (42.0-52.0); HEMOGLOBIN 15.5 g/dL (14.0-18.0); MCV 85.5 FL (81-99); RBC 5.31 XMIL (4.7-6.1); WBC 6.8 X1000 (4.8-10.8)
[2018-07-11 15:02] LABS: MCH 29.2 PG (27-31); MCHC 34.1 g/dL (33-37); MPV 8.7 FL (7.4-10.4); RDW 13.5 % (11.5-14.5)
[2018-07-11] MEDS: OFIRMEV 1000 MG/ISOTONIC SOLN 1,000 MG/100 ML BOTTLE IV PRN ×2 (15:30→21:44)
[2018-07-11 15:37] LABS: AGAP 15; BUN 17 mg/dL (8-22); CALCIUM 9.7 mg/dL (8.8-10.2); CHLORIDE 95 mmol/L (98-107); COSMO 278; ESTIMATED GFR > 60; GLUCOSE 106 mg/dL (70-104); MAGNESIUM 2.4 mg/dL (1.5-2.7); POTASSIUM 3.6 mmol/L (3.5-5.1); SODIUM 138 mmol/L (136-145); TCO2 28 mmol/L (25-35)
--- NOTE | 2018-07-11 16:30 | Diag Imaging Result Doc PS360 ---
CHEST-PORTABLE - 07/11/2018 INDICATION: NGT placement COMPARISON: None FINDINGS: There is a nasogastric tube in good position in the stomach. IMPRESSION: Nasogastric tube in the stomach. Electronically signed by Darin Pugh 07/11/2018 4:28 PM
[2018-07-11] MEDS: PEPCID IV SCH (17:07)
[2018-07-11] MEDS: SODIUM CHLORIDE 0.9% INJ SCH (20:48)
[2018-07-11] MEDS ORDERED: CHLORASEPTIC SPRAY MT PRN (22:01)
[2018-07-12] MEDS: SODIUM CHLORIDE 0.9% INJ SCH (02:22)
[2018-07-12] MEDS: PHENERGAN IV PRN ×2 (02:22→23:03)
[2018-07-12] MEDS: PEPCID IV SCH ×2 (02:22→15:28)
[2018-07-12] MEDS: OFIRMEV 1000 MG/ISOTONIC SOLN 1,000 MG/100 ML BOTTLE IV PRN ×3 (02:22→21:37)
[2018-07-12] MEDS: LR 1,000 ML IV SCH ×4 (06:28→19:34)
[2018-07-12 07:11] LABS: HEMATOCRIT 43.8 % (42.0-52.0); MCH 29.5 PG (27-31); MCHC 34.2 g/dL (33-37); MCV 86.1 FL (81-99); MPV 8.6 FL (7.4-10.4); RBC 5.09 XMIL (4.7-6.1); RDW 13.6 % (11.5-14.5); WBC 7.23 X1000 (4.8-10.8)
[2018-07-12 07:28] LABS: AGAP 12; BUN 17 mg/dL (8-22); CALCIUM 9.1 mg/dL (8.8-10.2); CHLORIDE 97 mmol/L (98-107); COSMO 281; CREATININE 0.9 mg/dL (0.7-1.2); ESTIMATED GFR > 60; GLUCOSE 95 mg/dL (70-104); MAGNESIUM 2.3 mg/dL (1.5-2.7); POTASSIUM 3.3 mmol/L (3.5-5.1); SODIUM 140 mmol/L (136-145); TCO2 31 mmol/L (25-35)
--- NOTE | 2018-07-12 08:09 | GENERAL SURGERY PROGRESS NOTE ---
DATE: 07/12/2018 SUBJECTIVE: The patient is seen in my office yesterday. He has had vomiting for the last several days. He was admitted over the weekend, showed initial improvement, but he has recurred, bilious in nature. We attempted a small bowel follow-through that showed high-grade obstruction, vomited the contrast. As such we placed a nasogastric tube. He has had over 2 L out since with improvement in his distention. He has no pain, no fevers, no tachycardia overnight. OBJECTIVE: General: He is alert. NG tube is in place. Bilious output. Abdomen: Soft, nontender, much less distended than in office yesterday. Integument: Warm and dry. Cardiovascular: Normal rate. LABS: I reviewed his labs. He did show some hemoconcentration when he came in, but a normal white count, normal renal function. Electrolytes: Magnesium was normal and potassium slightly low at 3.6. X-RAYS: I have reviewed his small bowel x-ray, as well as his chest x-ray post NG tube placement, and I ordered another abdominal film today to monitor flow of contrast. ASSESSMENT AND PLAN: Given all these findings, persistent symptoms for the better part of 6 days, I have recommended exploratory laparotomy. Discussed possible findings that this could be related to adhesive disease, possible internal hernia, possibility of a bowel resection, and all other indicated procedures. We also discussed the fact that this could recur again in the future. He understands all this. We will proceed to the operating room today using p.o. We will continue nasogastric tube decompression, intravenous fluids. cc: Haider Mckinney MD
--- NOTE | 2018-07-12 08:46 | Diag Imaging Result Doc PS360 ---
EXAM: ABDOMEN FLAT/UPRIGHT HISTORY: follow up contrast TECHNIQUE: Flat and upright, two views COMPARISON: 07/11/2018 FINDINGS: The distended bowel loops in the left abdomen are less pronounced than on the prior study. There is contrast within the proximal colon on the current exam. No organomegaly. No free air beneath the diaphragm. IMPRESSION: Interval improvement in the partial small bowel obstruction Electronically signed by Gerson Murphy 07/12/2018 8:44 AM
[2018-07-12] MEDS ORDERED: FENTANYL ONE (10:57)
[2018-07-12] MEDS ORDERED: DIPRIVAN 1% ONE (10:57)
[2018-07-12] MEDS: LOVENOX SUBQ SCH (11:00)
[2018-07-12] MEDS ORDERED: VERSED ONE (11:00)
[2018-07-12] MEDS ORDERED: SODIUM CHLORIDE 0.9% 10 ML ONE ×2 (11:01→11:55)
[2018-07-12] MEDS ORDERED: QUELICIN (DOSE) ONE (11:01)
[2018-07-12] MEDS ORDERED: XYLOCAINE-MPF 2% ONE (11:01)
[2018-07-12] MEDS ORDERED: NORCURON ONE ×2 (11:01→13:24)
[2018-07-12] MEDS ORDERED: EXPAREL 1.3% ONE (11:55)
[2018-07-12] MEDS ORDERED: MARCAINE 0.25% ONE (11:55)
[2018-07-12] MEDS ORDERED: INVANZ 1 GM/NS 1 GM/50 ML IVPB IV ONE (12:00)
[2018-07-12] MEDS ORDERED: EPHEDRINE ONE (12:26)
[2018-07-12 12:37] LABS: URINE SOURCE CATH
[2018-07-12 12:46] LABS: BILIRUBIN URINE NEGATIVE (NEGATIVE); BLOOD URINE NEGATIVE (NEGATIVE); COLOR YELLOW; GLUCOSE URINE NEGATIVE (NEGATIVE); KETONE URINE 60 mg/dL (NEGATIVE); LEUKOCYTES URINE NEGATIVE (NEGATIVE); NITRITE URINE NEGATIVE (NEGATIVE); PH URINE 6.5; PROTEIN URINE TRACE mg/dL (NEGATIVE); SP GRAVITY URINE 1.037; TURBIDITY URINE CLEAR (CLEAR); UROBILINOGEN URINE NORMAL (NORMAL)
[2018-07-12 12:48] LABS: UR EPITHELIAL CELLS >10 /HPF (<10); URINE BACTERIA NEGATIVE /HPF; URINE RBC <10 /HPF (<10); URINE WBC <10 /HPF (<10)
[2018-07-12] MEDS ORDERED: SOLU-CORTEF ONE (13:50)
[2018-07-12] MEDS ORDERED: ZOFRAN ONE (13:50)
[2018-07-12] MEDS ORDERED: DECADRON ONE (13:51)
[2018-07-12] MEDS ORDERED: NEOSTIGMINE ONE (14:27)
[2018-07-12] MEDS ORDERED: ROBINUL ONE (14:27)
[2018-07-12] MEDS: DILAUDID ONE ×4 (15:22→15:50)
[2018-07-12] MEDS ORDERED: OFIRMEV 1000 MG/ISOTONIC SOLN 1,000 MG/100 ML BOTTLE ONE (15:40)
[2018-07-12] MEDS: MORPHINE IV PRN ×2 (20:11→23:03)
--- NOTE | 2018-07-12 21:42 | OPERATIVE NOTE ---
DATE: 07/12/2018 PREOPERATIVE DIAGNOSIS: Small bowel obstruction. POSTOPERATIVE DIAGNOSIS: Small bowel obstruction. PROCEDURE PERFORMED: Exploratory laparotomy with lysis of adhesions. ANESTHESIA: General with TAP block. GRADES 9 THRU 12 VISITING TEACHER: Pipe Cunningham MD, who was present and facilitated exposure, lysis of adhesions which were very dense and inflammatory. FINDINGS: The previous mesenteric defect was intact there was dense adhesions of the small bowel to this repair of the mesenteric defect from his previous mass excision and some interloop adhesions. There was a focal transition point of loop of bowel that was stuck to his mesenteric repair. Some focal serosal injuries were made due to the dense adhesions and were repaired with imbricating 3-0 Vicryl. No evidence of persistent obstruction related to this. INDICATIONS: This is a gentleman who 2 weeks ago had resection of the large mesenteric mass. Developed obstructive symptoms in the last several days. This seemed to be partial and intermittent. Small-bowel follow-through showed dense obstruction yesterday, but he did have some passive contrast in the colon today concerning for internal herniation prompted exploration. INFORMED CONSENT: Risks, benefits, alternatives were discussed with patient. He consented to procedure. OPERATIVE NOTE: He was seen preoperatively. The surgical site was confirmed. He was taken to the operating room, placed in supine position. General anesthesia was induced without complication. All bony prominences were padded. A tap block was performed with Exparel by Anesthesia. For details, please see their records. After time-out, we reopened our midline incision and carried this down to the fascia, removing the previous PDS sutures. The fascia was intact and was healing well. We opened this and entered the abdomen in a virgin plane superiorly. There was some omental adhesions to the midline incision that we took down, protecting the bowel. An Titus wound protector was then placed. We then eviscerated the small bowel and ran it. There was an area dilated proximally that transitioned at a coalescence of bowel around the mesenteric defect. We had to lyse this for greater than an hour. Most of the dense adhesions were stuck to the previous mesentery defect repair, which was intact and there was no internal herniation. His knuckle of bowel that was densely stuck with the transition point that we mobilized up. This mobilization did cause some serosal injuries that we imbricated, but overall there was some dense interloop adhesions distally that given the recent postop setting were inseparable without damaging the bowel, but they were nonobstructive. As such, we elected to leave these, as we felt we had relieved his obstruction. Succus was able to milk through this without difficulty. He had a nasogastric tube in place. We irrigated the wound, noted hemostasis. There was no injury to the mesenteric vessels. The bowel was well perfused and peristalsing and there was no evidence of ongoing obstruction. We placed the bowel back in neutral position, covered this with omentum. Confirmed hemostasis, reapproximated the fascia with a #1 running looped PDS suture and interrupted 0 Vicryl internal retention sutures. The skin was closed with surgical clips. Dressing was applied. He tolerated it well, we awoke him and transferred him to recovery. I spoke with the family. cc: Haider Mckinney MD
[2018-07-13] MEDS: MORPHINE IV PRN ×7 (01:33→20:01)
[2018-07-13] MEDS: LR 1,000 ML IV SCH ×5 (02:40→22:24)
[2018-07-13] MEDS: PEPCID IV SCH ×2 (02:44→15:14)
[2018-07-13] MEDS: SODIUM CHLORIDE 0.9% INJ SCH ×2 (02:44→15:14)
[2018-07-13] MEDS: OFIRMEV 1000 MG/ISOTONIC SOLN 1,000 MG/100 ML BOTTLE IV PRN ×4 (03:44→21:34)
[2018-07-13] MEDS: PHENERGAN IV PRN ×3 (07:24→20:00)
[2018-07-13] MEDS: LOVENOX SUBQ SCH ×2 (09:15→17:03)
[2018-07-13] MEDS: PERIDEX MT SCH ×4 (09:15→20:00)
[2018-07-13] MEDS ORDERED: AYR NASAL SPRAY NAS PRN (16:18)
--- NOTE | 2018-07-13 22:58 | GENERAL SURGERY PROGRESS NOTE ---
DATE: 07/13/2018 SUBJECTIVE: Doing okay. NG tube has had some bilious output. No flatus. Pain is well controlled. Urine output has been adequate. OBJECTIVE: Hemodynamically he has been stable. His abdomen is soft. Minimal drainage on his incision. No fevers or tachycardia overnight. ASSESSMENT AND PLAN: A 58-year-old gentleman status post exploratory laparotomy with lysis of adhesions, for postoperative bowel obstruction after resection of mesenteric mass. He is doing well. He has an ileus. We will keep his nasogastric tube for now. We will encourage him to be out of bed. We will remove the Lizama. Check labs in the morning. He is on prophylactic Lovenox and a proton pump inhibitor. cc: Haider Mckinney MD
[2018-07-14] MEDS: PEPCID IV SCH ×2 (03:32→16:02)
[2018-07-14] MEDS: OFIRMEV 1000 MG/ISOTONIC SOLN 1,000 MG/100 ML BOTTLE IV PRN ×4 (03:32→22:40)
[2018-07-14] MEDS: LR 1,000 ML IV SCH ×2 (06:49→16:43)
[2018-07-14 07:01] LABS: BASO# 0.03 X1000 (0.0-0.2); BASO% 0.4 % (0.0-0.8); EOS# 0.17 X1000 (0.0-0.7); EOS% 2.4 % (0.0-10.0); HEMOGLOBIN 13.1 g/dL (14.0-18.0); LYMPH# 0.83 X1000 (1.2-3.4); LYMPH% 11.5 % (20.5-51.1); MCH 29.3 PG (27-31); MCHC 33.6 g/dL (33-37); MCV 87.2 FL (81-99); MONO# 0.65 X1000 (0.11-0.59); MPV 8.7 FL (7.4-10.4); NEUT# 5.55 X1000 (1.4-6.5); NEUT% 76.7 % (42.2-75.2); PLT 273 X1000 (130-400); RBC 4.47 XMIL (4.7-6.1); RDW 13.5 % (11.5-14.5); WBC 7.23 X1000 (4.8-10.8)
[2018-07-14 07:36] LABS: SODIUM 136 mmol/L (136-145)
[2018-07-14 07:37] LABS: AGAP 17; BUN 9 mg/dL (8-22); CALCIUM 8.1 mg/dL (8.8-10.2); CHLORIDE 96 mmol/L (98-107); COSMO 269; CREATININE 0.6 mg/dL (0.7-1.2); ESTIMATED GFR > 60; GLUCOSE 76 mg/dL (70-104); MAGNESIUM 1.9 mg/dL (1.5-2.7); POTASSIUM 3.3 mmol/L (3.5-5.1); TCO2 23 mmol/L (25-35)
[2018-07-14] MEDS: PHENERGAN IV PRN (10:01)
[2018-07-14] MEDS: LOVENOX SUBQ SCH (10:03)
[2018-07-14] MEDS: PERIDEX MT SCH ×2 (10:04→22:41)
--- NOTE | 2018-07-14 21:37 | GENERAL SURGERY PROGRESS NOTE ---
DATE: 07/14/2018 Doing well. He is passing gas. Removed his NG tube. He tolerated this. He is tolerating some sips of clears. We will give him some more. Decrease IV fluids. He is on prophylactic Lovenox. I reviewed his labs. Creatinine is okay. His hematocrit is stable. He is on PPI. cc: Haider Mckinney MD
[2018-07-15] MEDS: OFIRMEV 1000 MG/ISOTONIC SOLN 1,000 MG/100 ML BOTTLE IV PRN ×3 (04:29→17:35)
[2018-07-15] MEDS: PEPCID IV SCH ×2 (04:29→16:56)
[2018-07-15] MEDS: LOVENOX SUBQ SCH (08:57)
[2018-07-15] MEDS: PERIDEX MT SCH ×2 (13:16→20:35)
[2018-07-15] MEDS: LR 1,000 ML IV SCH (14:08)
[2018-07-15] MEDS: PHENERGAN IV PRN (20:30)
--- NOTE | 2018-07-15 22:16 | GENERAL SURGERY PROGRESS NOTE ---
DATE: 07/15/2018 Mr. Elizabeth is doing generally well. He is afebrile. Hemodynamics are good. He is sipping on water and tea. He seems to be tolerating that okay. He said he did have a bowel movement today. Due to the adhesions, he is to go slow in his p.o. intake. We will continue with our current treatment. His IV fluids were adequate. cc: MD Haider Young MD
[2018-07-16] MEDS: PEPCID IV SCH ×2 (04:55→16:15)
--- NOTE | 2018-07-16 09:18 | GENERAL SURGERY PROGRESS NOTE ---
DATE: 07/16/2018 Mr. Elizabeth is passing flatus this morning. He says he is hungry. He does have bowel sounds. He is afebrile. Hemodynamics were good. He did have a small bowel movement yesterday. The plan will be to advance him to full liquids today. cc: MD Haider Young MD
[2018-07-16] MEDS: LOVENOX SUBQ SCH (09:33)
[2018-07-16] MEDS: PERIDEX MT SCH (09:33)
[2018-07-16] MEDS: OFIRMEV 1000 MG/ISOTONIC SOLN 1,000 MG/100 ML BOTTLE IV PRN (11:08)
[2018-07-16] MEDS: LR 1,000 ML IV SCH (11:08)
[2018-07-17] MEDS: PERIDEX MT SCH ×2 (04:53→09:37)
[2018-07-17] MEDS: PEPCID IV SCH (05:05)
[2018-07-17 07:54] VITALS: BP 128/88
[2018-07-17] MEDS: LOVENOX SUBQ SCH (09:37)
[2018-07-17] MEDS: LR 1,000 ML IV SCH (09:37)
--- NOTE | 2018-07-18 07:32 | DISCHARGE SUMMARY ---
ADMISSION DATE: 07/11/2018 DISCHARGE DATE: 07/17/2018 ADMITTING DIAGNOSES: 1. History of mesenteric mass. 2. Small bowel obstruction. DISCHARGE DIAGNOSES: 1. History of mesenteric mass. 2. Small bowel obstruction. PROCEDURE PERFORMED: Exploratory laparotomy with lysis of adhesions that was performed on 07/12/2018. HISTORY OF PRESENT ILLNESS: This 58-year-old gentleman who 2 weeks ago prior to this admission underwent excision of a large mesenteric benign abscess. He did well initially, but developed nausea and vomiting, intolerance to p.o., and decrease in his level of bowel function. The outpatient small-bowel follow-through showed high-grade obstruction. He was admitted for management of this. He was taken to the operating room on hospital day #2 after nasogastric tube decompression for exploratory laparotomy. Following this, we kept his NG tube for approximately 48 hours. He had return of bowel function and did well. His diet was advanced to full liquids. He was on Lovenox PPI and maintenance IV fluids. He is able to ambulate and voided after the Lizama was discontinued. Overall, he is doing very well. On the day of his discharge, his incision is intact. His abdomen is soft, nontender. Overall, he is doing very well. DISPOSITION: Home to self-care. DISCHARGE CONDITION: Good. DISCHARGE DIET: Will continue on full liquids advancing to GI soft over the next couple of weeks. I have discussed this in detail. DISCHARGE MEDICATIONS: He will continue taking his home medications. He was not requiring anything other than Tylenol for pain control. cc: aHider Mckinney MD
== END 2018-07-17 16:28 | disposition home or self-care (01) | DRG 337 ==
LOC: RAD 11:07 → 4N 13:05
PROVIDERS: ADMIT Surgery; ATTEND Surgery
CPT/HCPCS: 71010; 71045; 74019; 74020; 74250; 80048; 81001; 83735; 85025; 85027; 94760; 94761; 94799; A9270; C9290; J0131; J0330; J1100; J1170; J1335; J1650; J1720; J2250; J2270; J2405; J2550; J3010; J7120; Q9966; Q9967; S0020; S0028